=== PATIENT | male | born 2005 | race Caucasian/White ===

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

== ENCOUNTER 2023-06-24 10:49 | Emergency (ER) | payer OTHER, SELFPAY ==
[2023-06-24 11:12] VITALS: BP 107/76; PULSE 82; RESP 20; TEMP 36.6; O2SAT 98
--- NOTE | 2023-06-24 11:26 | ED.URI ---
HPI - URI/Sore Throat General Chief Complaint: Upper Respiratory Infection Stated Complaint: Sore Throat, Headache, Runny Nose Time Seen by Provider: 06/24/23 11:26 History of Present Illness HPI Narrative: 17-year-old male presented for complaint of sore throat and headache. Onset yesterday. Denies any other symptoms. Taking ibuprofen. Hx strep infections and states this feels similar. Related Data Allergies Allergy/AdvReac Type Severity Reaction Status Date / Time No Known Allergies Allergy Unknown Verified 06/24/23 11:31 Review of Systems Review of Systems: CONSTITUTIONAL: Denies body aches, fever, chills, or sweats. EYES: Denies visual changes, redness, or discharge. ENT: Reports sore throat denies rhinorrhea, congestion, or otalgia. CARDIOVASCULAR: Denies chest pain, palpitations, or edema. RESPIRATORY: Denies dyspnea. GASTROINTESTINAL: Denies abdominal pain, nausea, vomiting, or diarrhea. SKIN: Denies rash, itching, or wounds. MUSCULOSKELETAL: Denies back pain, joint pain, or myalgia. NEUROLOGIC: Reports headache PMFSH Past Medical History Medical History BMI between 19-24,adult Body mass index (BMI) less than 19 Right ankle sprain Family History Family History Grandparent Diabetes mellitus Cerebrovascular accident Social History Social History Smoking status: Never smoker Alcohol intake: never Living arrangements: with family Gender identity (if verbalized by the patient): Male Exam Narrative: GENERAL: mildly Ill-appearing, no acute distress. EYES: conjunctivae clear ENT: Mucous membranes moist. TMs pearly lopez with normal light reflex bilaterally; no tragal tenderness. Oropharynx erythematous Tonsils enlarged 2+ with exudate on right. No drooling, no hoarseness, no trismus, uvula midline. No tripod positioning, hot potato voice, or soft palate swelling. NECK: Supple. No lymphadenopathy CHEST: Clear to auscultation, breath sounds equal. No respiratory distress, speaks in full sentences. HEART: Regular rate and rhythm. No murmur heard. SKIN: Warm, dry, no rash. NEURO: Alert and oriented x3. Course Course Emergency Course: Patient is aware of diagnosis, understands and agrees to treatment plan. Anticipatory guidance given. Patient agrees to follow-up as directed and is aware of reasons to seek care at the emergency department. Portions of this record may have been created with voice recognition software Level of Care: Express Care Visit Vital Signs Vital signs: Vital Signs Temperature 97.8 F 06/24/23 11:12 Pulse Rate 82 06/24/23 11:12 Respiratory Rate 20 06/24/23 11:12 Blood Pressure 107/76 06/24/23 11:12 Pulse Oximetry 98 06/24/23 11:12 Temperature 97.8 F 06/24/23 11:12 Pulse Rate 82 06/24/23 11:12 Respiratory Rate 20 06/24/23 11:12 Blood Pressure 107/76 06/24/23 11:12 Pulse Oximetry 98 06/24/23 11:12 MDM - URI/Sore Throat MDM Narrative Medical decision making narrative: Neg strep result reviewed with pt. Will treat based on PE and CC. Advise supportive treatments. Patient is appropriate for outpatient treatment and follow-up. Differential Diagnosis Differential diagnosis: Likely upper respiratory infection, viral infection and pharyngitis Discharge Plan Discharge Clinical Impression: Upper respiratory infection Patient Disposition: Home, Self-Care Condition: Stable Instructions: Antibiotic Form, Strep Throat (ED) Additional Instructions: - Take the antibiotic as directed. Fever and sore throat typically resolve within one to three days. Most patients can return to work, school, after 12 to 24 hours of antibiotic therapy, provided you are fever free and otherwise well. -Eat and drink things that are easy to swallow, like soft foods, cool l
== END 2023-06-24 11:35 | disposition home or self-care (01) ==
PROVIDERS: Emergency Provider Nurse Practitioner Family
DX: J06.9 Acute upper respiratory infection, unspecified (principal)
CPT/HCPCS: 87081; 87880; 99213; G0463

== ENCOUNTER 2024-05-09 13:30 | Emergency (ER) | payer OTHER, SELFPAY ==
--- NOTE | ~2024-05-09 | XR_ITS ---
Clinical Indication: Shortness of breath PA and lateral views of the chest: Comparison: None Findings: The lungs are clear, without evidence of focal consolidation or pleural effusion. Cardiome diastinal silhouette is within normal limits. Bones and soft tissues are unremarkable. Impression: Normal chest. Reviewed, dictated and finalized at [facility]. ITION MANAGER Impression: Normal chest.
[2024-05-09 13:36] VITALS: BP 157/95; PULSE 80; RESP 18; TEMP 36.4; O2SAT 100
[2024-05-09] MEDS: KETOROLAC 30 MG/ML VIAL (*BKC) IV PUSH (14:00)
[2024-05-09] MEDS: SODIUM CHLORIDE 0.9% IV 1,000 ML 999 ML IV CONT (14:00)
[2024-05-09 14:12] LABS: Basophils Absolute Auto 0.1 K/mm3 (0.0-0.1); Eosinophils Absolute Auto 0.2 K/mm3 (0-0.3); Eosinophils Percent Auto 4.3 % (0-4.4); Hematocrit 45.1 % (42.0-52.0); Hemoglobin 15.5 g/dL (14.0-18.0); Immature Granulocyte Absolute 0.01 K/mm3 (0.00-0.031); Immature Granulocyte Percent A 0.2 % (0-0.5); Lymphocytes Percent Auto 35.1 % (18.3-44.2); Mean Corpuscular HGB Conc 34.4 g/dl (32-36); Mean Corpuscular Hemoglobin 28.8 pg (26-34); Mean Corpuscular Volume 83.8 fl (80-100); Mean Platelet Volume 9.1 fl (7.4-10.4); Monocytes Percent Auto 19.5 % (2.6-8.5); Neutrophils Absolute Auto 2.1 K/mm3 (1.3-6.7); Neutrophils Percent Auto 39.9 % (45.5-73.1); Platelet Count Result 174 k/mm3 (150-375); Red Blood Count 5.38 M/mm3 (4.6-6.20); Red Cell Distribution Width 12.3 % (11.5-14.5); White Blood Count 5.1 K/mm3 (4.5-10.0)
[2024-05-09 14:21] LABS: Alanine Aminotransferase 27 U/L (6-50); Albumin Level 4.5 g/dL (3.5-5.1); Alkaline Phosphatase 103 U/L (38-126); Anion Gap 6 mmol/L (4-12); Aspartate Amino Transferase 35 U/L (17-59); Bilirubin,Total 1.3 mg/dL (0.2-1.3); Blood Urea Nitrogen 15 mg/dL (9-20); Calcium 9.7 mg/dL (8.4-10.2); Carbon Dioxide 28 mmol/L (22-30); Chloride 105 mmol/L (98-107); Estimated CRCL calculation 100 ml/min; Estimated Glomerular Filt Rate > 60; Glucose 99 mg/dL (65-110); Potassium 4.3 mmol/L (3.4-5.0); Sodium 139 mmol/L (137-145)
[2024-05-09 14:28] LABS: Prothrombin Time 13.6 Seconds (11.1-14.7)
[2024-05-09 14:29] LABS: Partial Thromboplastin Time 27.5 Seconds (22.3-36.8)
--- NOTE | 2024-05-09 14:42 | ED_ITS ---
HPI - General Adult General Chief complaint: Unspecified Stated complaint: sent me here to be tested for meningitis Time Seen by Provider: 05/09/24 13:33 History of Present Illness HPI narrative: Patient is a 18-year-old male who presents ER with neck stiffness /aching. Ongoing over last week. No fevers or chills or sweats. Mild sinus congestion. Aching is worse when turning to left. He is able to touch his chin to his chest and has no shooting pains down his spine. No numbness or tingling to the arms or legs. There urgent care was concerned he could have meningitis and sent him here for further evaluation patient has no other complaints. Patient does report when he takes ibuprofen here alleviate his discomfort. No recent trauma or injury. Related Data Allergies Allergy/AdvReac Type Severity Reaction Status Date / Time No Known Allergies Allergy Unknown Verified 06/24/23 11:31 Review of Systems 2 Review of Systems: All systems reviewed & are unremarkable except as noted in HPI and below Constitutional: Constitutional: Reports no additional constitutional complaints ENT: Reports system reviewed and no additional complaints, except as documented Cardiovascular: Cardiovascular: Reports no additional cardiovascular complaints Respiratory: Respiratory: Reports no additional respiratory complaints Musculoskeletal: Musculoskeletal: Reports no additional musculoskeletal complaints Neurologic: Reports system reviewed and no additional complaints, except as documented [facility] Past Medical History Medical History (Updated 05/09/24 @ 14:47 by Michele Lopes MD) Healthy adult male Body mass index (BMI) less than 19 Right ankle sprain BMI between 19-24,adult Surgical History Surgical History (Updated 05/09/24 @ 14:44 by Michele Lopes MD) No history of previous surgery Family History Family History Grandparent Diabetes mellitus Cerebrovascular accident Social History Social History Smoking status: Never smoker Alcohol intake: never Living arrangements: with family Gender identity (if verbalized by the patient): Male Exam 2 Narrative: GENERAL: Well-appearing, well-nourished, and in no acute distress. HEAD: Normocephalic, atraumatic. ENT: Mucous membranes moist. NECK: Supple. full range of motion. No reproducible midline or paraspinal muscle tenderness. No palpable spasm. CHEST: Clear to auscultation. No respiratory distress. HEART: Regular rate and rhythm. Normal peripheral pulses. ABDOMEN: Soft, nontender, nondistended. EXTREMITIES: Normal range of motion. No edema. SKIN: Warm, dry, no rash. NEURO: Alert and oriented x3. PSYCH: Normal mood and affect. Course Course Emergency Course: Nontoxic appearing and without meningismus on exam. He is afebrile. Lab work is entirely normal. No new rashes lower extremities. Discussed with patient that I do not think he has meningitis and the risks of any sort of spinal tap certainly outweigh the benefits of the results. Recommend discharge home with muscle relaxers and anti-inflammatories. Vital Signs Vital signs: Vital Signs Temperature 97.5 F L 05/09/24 13:36 Pulse Rate 80 05/09/24 13:36 Respiratory Rate 18 05/09/24 13:36 Blood Pressure 157/95 H 05/09/24 13:36 Pulse Oximetry 100 05/09/24 13:36 Oxygen Delivery Room Air 05/09/24 13:36 Temperature 97.5 F L 05/09/24 13:36 Pulse Rate 80 05/09/24 13:36 Respiratory Rate 18 05/09/24 13:36 Blood Pressure 157/95 H 05/09/24 13:36 Pulse Oximetry 100 05/09/24 13:36 Oxygen Delivery Room Air 05/09/24 13:36 Medical Decision Making Vital Signs Vital Signs: Vital Signs Temperature 97.5 F L 05/09/24 13:36 Pulse Rate 80 05/09/24 13:36 Respiratory Rate 18 05/09/24 13:36 Blood Pressure 157/95 H 05/09/24 13:36 Pulse Oximetry 100 05/09/24 13:36 Oxygen Delivery Room Air 05/09/24 13:36 Temperature 97.5 F L 05/09/24 13:36 Pulse Rate 80 05/09/24 13:36 Respiratory Rate 18 05/09/24 13:36 Blood Pressure 157/95 H 05/09/24 13:36 Pulse Oximetry 100 05/09/24 13:36 Oxygen Delivery Room Air 05/09/24 13:36 Lab Data 05/09/24 14:05 05/09/24 14:05 Labs: Lab Results 05/09/24 Range/Units 14:05 WBC 5.1 (4.5-10.0) K/mm3 RBC 5.38 (4.6-6.20) M/mm3 Hgb 15.5 (14.0-18.0) g/dL Hct 45.1 (42.0-52.0) % MCV 83.8 (80-100) fl MCH 28.8 (26-34) pg MCHC 34.4 (32-36) g/dl RDW 12.3 (11.5-14.5) % Plt Count 174 (150-375) k/mm3 MPV 9.1 (7.4-10.4) fl Immature Gran % (Auto) 0.2 (0-0.5) % Neut % (Auto) 39.9 L (45.5-73.1) % Lymph % (Auto) 35.1 (18.3-44.2) % [place] % (Auto) 19.5 H (2.6-8.5) % Eos % (Auto) 4.3 (0-4.4) % Baso % (Auto) 1.0 (0.2-1.2) % Lymph # (Auto) 1.80 (0.9-3.2) K/mm3 [place] # (Auto) 1.0 H (0.1-0.6) K/mm3 Eos # (Auto) 0.2 (0-0.3) K/mm3 Baso # (Auto) 0.1 (0.0-0.1) K/mm3 Abs Immat Gran (auto) 0.01 (0.00-0.031) K/mm3 Absolute Neuts (auto) 2.1 (1.3-6.7) K/mm3 Absolute Nucleated RBC 0.000 (0.0-0.012) K/mm3 Nucleated RBC % 0.0 (0.0-0.2) % Platelet Estimate Pending Schistocytes Pending PT 13.6 (11.1-14.7) Seconds INR 1.0 APTT 27.5 (22.3-36.8) Seconds Sodium 139 (137-145) mmol/L Potassium 4.3 (3.4-5.0) mmol/L Chloride 105 (98-107) mmol/L Carbon Dioxide 28 (22-30) mmol/L Anion Gap 6 (4-12) mmol/L BUN 15 (9-20) mg/dL Creatinine 1.00 (0.7-1.3) mg/dL Estim Creat Clear Calc 100 ml/min Estimated GFR > 60 (59 - ) Glucose 99 (65-110) mg/dL Calcium 9.7 (8.4-10.2) mg/dL Total Bilirubin 1.3 (0.2-1.3) mg/dL AST 35 (17-59) U/L ALT 27 (6-50) U/L Alkaline Phosphatase 103 (38-126) U/L Total Protein 8.0 (6.3-8.2) g/dL Albumin 4.5 (3.5-5.1) g/dL Imaging Data Radiologist's impression: ITS Impressions Chest X-Ray 05/09/24 14:35 Impression: Normal chest. Discharge Plan Discharge Clinical Impression: Neck pain Patient Disposition: Home, Self-Care Condition: Stable Instructions: Acute Neck Pain (ED) Additional Instructions: return ER if you have severe headache with high fever, you have sensitivity to lights, you develop chest pain shortness breath, or you have additional concerns. Patient Language: Vietnamese Prescriptions: New cyclobenzaprine 10 mg tablet 10 mg PO TID PRN (Reason: muscle spasm) Qty: 20 0RF naproxen 375 mg tablet 375 mg PO BID Qty: 14 0RF No Action amoxicillin 500 mg tablet 1,000 mg PO DAILY 10 Days Qty: 20 0RF Follow-up/Referrals: Yrn Marquis MD [Physician] - 1 Week UNKNOWN,DOCTOR [Primary Care Provider] -
[2024-05-09 15:03] LABS: Platelet Estimate Adequate (Adequate); Schistocytes None Seen
[2024-05-09 15:04] LABS: Atypical Lymphocytes Present
== END 2024-05-09 14:59 | disposition home or self-care (01) ==
PROVIDERS: Emergency Provider Emergency Medicine
DX: M54.2 Cervicalgia (principal)
CPT/HCPCS: 36415; 71046; 80053; 85025; 85610; 85730; 96361; 96374; 99284; J1885; J7030

== ENCOUNTER 2024-12-14 12:28 | Emergency (ER) | payer OTHER, SELFPAY ==
--- NOTE | ~2024-12-14 | XR_ITS ---
HISTORY: Blunt trauma. Swelling and tenderness to the fourth and fifth MCP joints COMPARISON: 05/27/2018 TECHNIQUE: 3 views of the right hand were performed. FINDINGS: Acute fracture involving the distal fifth metacarpal with palmar displacement of the distal fracture fragment. Overlying soft tissue swelling is noted. No additional fractures are appreciated. IMPRESSION: Acute displaced fracture of the distal fifth metacarpal with palmar displacement of the distal fractu re fragment and overlying soft tissue swelling. Reviewed, dictated and finalized at location A. IMPRESSION: Acute displaced fracture of the distal fifth metacarpal with palmar displacemen t of the distal fracture fragment and overlying soft tissue swelling.
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
[2024-12-14 12:41] VITALS: BP 122/84; PULSE 83; RESP 20; TEMP 37.3; O2SAT 100
== END 2024-12-14 13:25 | disposition home or self-care (01) ==
PROVIDERS: Emergency Provider Nurse Practitioner
DX: S62.336A Displaced fracture of neck of fifth metacarpal bone, right hand, initial encounter for closed fracture (principal); W51.XXXA Accidental striking against or bumped into by another person, initial encounter
CPT/HCPCS: 29125; 73130; 99214; A4565; G0463

== ENCOUNTER 2024-12-30 15:32 | Outpatient (CLI) | payer OTHER, SELFPAY ==
--- NOTE | ~2024-12-30 | XR_ITS ---
Exam: X-ray right hand minimum 3 views. Clinical history: Nondisplaced fracture base of fifth metacarpal COMPARISON: 12/14/2024 TECHNIQUE: 3 images of the right hand were obtained. FINDINGS: Progressive, yet incomplete healing of the displaced and angulated fracture of the distal third of th e right fifth metacarpal with adjacent soft tissue swelling. Alignment is stable No new fracture identified. IMPRESSION: 1.Progressive, yet incomplete healing of the displaced and angulated fracture of the distal third of the right fifth metacarpal with adjacent soft tissue swelling. Alignment is stable. 2.No new fracture identified. Reviewed, dictated and finalized at location A. IMPRESSION: 1.Progressive, yet incomplete healing of the displaced and angulated fracture o f the distal third of the right fifth metacarpal with adjacent soft tissue swel ling. Alignment is stable. 2.No new fracture identified.
--- OUTSIDE RECORDS SUMMARY | 2024-12-30 15:46 | XMS_ITS | Clinical Summary ---
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 Gender Identity Not on file Sexual Orientation Not on file Obstetrics History Last Filed Vital Signs Vital Sign Reading Time Taken Comments Blood Pressure 136/90 06/11/2022 10:55 AM CPR INSTRUCTOR Pulse 70 06/11/2022 10:55 AM CPR INSTRUCTOR Temperature 36.4 C (97.6 F) 06/11/2022 10:55 AM CPR INSTRUCTOR Respiratory Rate 14 06/11/2022 10:55 AM CPR INSTRUCTOR Oxygen Saturation 99% 06/11/2022 10:55 AM CPR INSTRUCTOR Inhaled Oxygen Concentration - - Weight 62.6 kg (138 lb) 06/11/2022 10:55 AM CPR INSTRUCTOR Height 175.3 cm (5' 9) 06/11/2022 10:55 AM CPR INSTRUCTOR Body Mass Index 20.38 06/11/2022 10:55 AM CPR INSTRUCTOR Plan of Treatment Health Maintenance Due Date Last Done Comments Depression Screening 2003 Hepatitis C Screening 2003 DTaP/Tdap/Td Vaccine (1 - Tdap) 08/22/2014 Varicella Vaccines (1 of 2 - 13+ 2-dose series) 08/22/2016 HPV Vaccines (1 - Male 3-dos e series) 08/22/2018 Meningococcal B Vaccine (1 o f 2 - Standard) 2019 Hepatitis B Screening 08/22/2021 Regular Well Visit/Exam 18-64 08/22/2021 Influenza Vaccine (#1) 2025 Meningococcal Vaccine Aged Out No estee tootie eligible based on patient's age to complete this topic Pneumococcal vaccine <65 Aged Out No longer eligible based on patient's age to complete this topic Insurance [facility] H[facility]/PPO Address: [address] [address] [place] [address] [facility] 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
== END 2024-12-30 15:33 | disposition home or self-care (01) ==
LOC: ANHLAB 15:39 → ANHIMG 15:40
PROVIDERS: Visit Provider Plastic Surgery
DX: S62.326D Displaced fracture of shaft of fifth metacarpal bone, right hand, subsequent encounter for fracture with routine healing (principal)
CPT/HCPCS: 73130